=== PATIENT | female | born 1990 | race Caucasian/White ===

== ENCOUNTER → 2019-09-02 10:06 | Outpatient (BNVA) | payer MEDICAID, SELFPAY | PROVIDERS: Family Provider Physician Assistant; PCP Nurse Practitioner Family; Visit Provider Obstetrics & Gynecology | DX: R10.2 Pelvic and perineal pain (principal) | CPT/HCPCS: 76830 ==

== ENCOUNTER → 2019-10-02 16:10 | Outpatient (BNVA) | payer MEDICAID, SELFPAY | PROVIDERS: Family Provider Physician Assistant; PCP Nurse Practitioner Family; Visit Provider Obstetrics & Gynecology | DX: Z12.4 Encounter for screening for malignant neoplasm of cervix (principal); R10.2 Pelvic and perineal pain | CPT/HCPCS: 88175 ==

== ENCOUNTER → 2019-11-15 08:49 | Outpatient (BNVA) | payer MEDICAID, SELFPAY | PROVIDERS: Family Provider Physician Assistant; PCP Nurse Practitioner Family; Visit Provider Obstetrics & Gynecology | DX: R87.610 Atypical squamous cells of undetermined significance on cytologic smear of cervix (ASC-US) (principal); R87.810 Cervical high risk human papillomavirus (HPV) DNA test positive | CPT/HCPCS: 88305 ==

== ENCOUNTER 2020-03-12 14:32 | Outpatient (CLI) | payer MEDICAID, SELFPAY ==
--- NOTE | 2020-03-12 14:42 | MR_ITS ---
WS: [id number] MRI RIGHT KNEE HISTORY: PAIN IN RIGHT KNEE COMPARISON: None available. Anterior cruciate ligament: Intact. Posterior cruciate ligament: Intact. Medial collateral ligament: Intact. Posterior lateral corner structures: Intact. Medial menisci: Intact. Normal signal, size and shape. Lateral meniscus: Intact. Normal signal, size and shape. Extensor mechanism: Distal quadriceps tendon and patellar tendons are intact. Fluid and soft tissue: Very small joint effusion. Small amount of soft tissue edema surrounding the k nee the level of the patella. No Nuñez's cyst. Osseous and articular structures: Patellofemoral compartment: Normal. Medial compartment: Normal. Lateral compartment: Normal. MR/MR knee RT wo con* [id number] IMPRESSION: 1. Small amount of edema and small joint effusion. 2. No meniscal tear.
== END 2020-03-12 14:33 | disposition home or self-care (01) ==
LOC: RADSHAW 14:38
PROVIDERS: PCP Nurse Practitioner Family; Visit Provider Nurse Practitioner
DX: M25.561 Pain in right knee (principal); M62.81 Muscle weakness (generalized); R60.9 Edema, unspecified; R29.898 Other symptoms and signs involving the musculoskeletal system; R60.0 Localized edema; M25.461 Effusion, right knee
CPT/HCPCS: 73721

== ENCOUNTER → 2020-05-20 09:10 | Outpatient (BNVA) | payer MEDICAID, SELFPAY | PROVIDERS: PCP Nurse Practitioner Family; Referring Provider Nurse Practitioner Primary Care; Visit Provider Specialist | DX: M25.561 Pain in right knee (principal) | CPT/HCPCS: 73560; 73565 ==

== ENCOUNTER → 2020-08-17 14:22 | Outpatient (BNVA) | payer MEDICAID, SELFPAY | PROVIDERS: PCP Nurse Practitioner Family; Visit Provider Specialist | DX: M25.561 Pain in right knee | CPT/HCPCS: 73560; 73565 ==

== ENCOUNTER 2020-09-15 13:09 | Outpatient (CLI) | payer MEDICAID, SELFPAY ==
--- NOTE | 2020-09-15 13:00 | IR_ITS ---
WS: [id number] RIGHT KNEE ARTHROGRAM (FLUOROSCOPY) RIGHT knee arthrogram was performed in fluoroscopy prior to MRI evaluation. HISTORY: S89.90XA - Unspecified injury of unspecified lower leg, initial encounter COMPARISON: 08/17/2020 Fluoroscopy time: 1.1 minutes. Procedure, risks and complications were explained to the patient. Complications include but not limit ed to bleeding, infection and contrast reaction. Current medications are reviewed. Skin is cleansed with ChloraPrep. Skin is anesthetized with 1% buffered lidocaine. 22-gauge needle is inserted into the lateral patellofemoral joint space. Approximately 35 cc of gadolinium mixture inje cted without complication. Patient will proceed to MRI evaluation immediately. No complications were encountered. Patient is instructed to watch for post procedure infection or ble eding. Patient is also instructed to contact the radiology department with any concerns. IR/[place] [id number] IMPRESSION: Uncomplicated RIGHT knee joint injection prior to MR arthrogram.
--- NOTE | 2020-09-15 13:15 | MR_ITS ---
WS: [id number] RIGHT knee MR arthrogram. HISTORY: Pain in RIGHT knee. Medial pain after twisting injury. COMPARISON: 03/12/2020. Prearthrogram and post arthrogram imaging performed in multiple planes through the knee. Prearthrogram: Diffuse joint effusion. There is mild soft tissue edema. There is fluid at the fibular head which was not present on prior study and may be a small ganglion or bursitis. No definite Nuñez 's cyst. ACL and PCL appear to be intact. Medial collateral ligaments are normal. No meniscal tear. N o loss of cartilage with marrow edema. Mild lateral subluxation of patella. Resulting in mild narrowi ng of the lateral patellofemoral joint space. Medial patellar retinaculum is intact. There is mild subluxation from the joint space of the medial meniscus. No tear is appreciated. Post arthrogram: No meniscal tears are identified on the post arthrogram imaging. There is increased distention of the fluid collection at the fibular head which is probably a fibular head bursitis. No soft tissue fragm ents within the joint fluid. No marrow edema. Again noted is some mild lateral subluxation of patella . MR/MR knee RT wo/w con [id number] IMPRESSION: 1. Uncomplicated RIGHT knee arthrogram. 2. Mild lateral subluxation of patella resulting in narrowing of the patellofe moral joint space. 3. No marrow edema or fracture. 4. Fluid distended fibular head bursa. 5. No meniscal tears.
[2020-09-15] MEDS: iohexol 240 mg/mL 50 mL Btl INTRA-ARTI (14:35)
[2020-09-15] MEDS: gadobenate dimeglumine 20 mL vial IV (14:41)
== END 2020-09-15 13:10 | disposition home or self-care (01) ==
LOC: RADWPI 13:13
PROVIDERS: PCP Nurse Practitioner Family; Visit Provider Specialist
DX: S83.001A Unspecified subluxation of right patella, initial encounter; X58.XXXA Exposure to other specified factors, initial encounter
CPT/HCPCS: 27369; 73723; 77002; A9577; Q9966

== ENCOUNTER → 2020-10-15 13:50 | Outpatient (BNVA) | payer MEDICAID, SELFPAY | PROVIDERS: PCP Nurse Practitioner Family; Visit Provider Obstetrics & Gynecology | DX: R87.610 Atypical squamous cells of undetermined significance on cytologic smear of cervix (ASC-US) (principal) | CPT/HCPCS: 88175 ==

== ENCOUNTER → 2021-09-24 08:43 | Outpatient (BNVA) | payer MEDICAID, SELFPAY | PROVIDERS: PCP Nurse Practitioner Family; Visit Provider Obstetrics & Gynecology | DX: Z30.2 Encounter for sterilization (principal) | CPT/HCPCS: 87635 ==

== ENCOUNTER 2021-09-29 06:35 | Day surgery (SDC) | payer MEDICAID, SELFPAY ==
[2021-09-27 09:49] VITALS: BMI 42.1
--- NOTE | 2021-09-27 16:10 | P.ANESASSM_ITS ---
Pre-Anesthetic Assessment Height/Weight: Height 1.68 m Weight 118.388 kg Operation Date: 09/29/21 08:30 Proposed Procedures p Laparoscopic Salpingectomy 83441/z30.2(Bilateral) - James Araujo MD Familial anesthetic complications: None Was Beta Kevin taken within 24 hours: N/A Was Clonidine taken within 24 hours: N/A Social Tobacco and No alcohol Exam alert, oriented x 3 and regular rate & rhythm Airway Submandibular: within normal limits Cervical ROM: within normal limits Mallampati: Class II Dentition: chipped Pulmonary Asthma and Chronic Obstructive Pulmonary Disease CV/HEM Hypertension Metabolic Morbid Obesity Anesthetic Plan ASA status: 3 Anesthesia: General Medications/Allergies Home Medications Medication Instructions Recorded Confirmed Last Taken Type duloxetine 30 mg capsule,delayed 30 mg PO DAILY #30 cap 05/18/20 09/27/21 Unknown Rx release cetirizine 10 mg tablet (All Day 10 mg PO DAILY 05/20/20 09/27/21 Unknown History Allergy (cetirizine)) hydrochlorothiazide 25 mg tablet 25 mg PO DAILY 10/15/20 09/27/21 Unknown History gabapentin 300 mg capsule 300 mg PO BID 08/27/21 09/27/21 Unknown History furosemide 20 mg tablet 20 mg PO QAM PRN tab 09/27/21 09/27/21 Unknown History potassium chloride 10 mEq 10 meq PO DAILY 09/27/21 09/27/21 Unknown History capsule,extended release Allergies Allergy/AdvReac Type Severity Reaction Status Date / Time doxycycline Allergy Mild rash Verified 09/27/21 09:47 Latex, Natural Rubber Allergy rash Verified 09/27/21 09:47 Penicillins Allergy throat Verified 09/27/21 09:47 swelling [facility] Anesthesia Medical History (Updated 08/27/21 @ 16:52 by James Araujo MD) Asthma Fibromyalgia Request for sterilization Surgical History (Updated 08/27/21 @ 16:52 by James Araujo MD) H/O dilation and curettage History of appendectomy (05/19/15) laparoscopic. [place] [facility] [place] History of cholecystectomy (~2010) laparoscopy Family History (Updated 08/27/21 @ 13:39 by Nery Oseguera RN) Grandmother Hypertension Paternal Stroke Paternal Grandmother Diabetes Maternal Hypertension Maternal Family/Other Diabetes Maternal aunt Thyroid condition paternal aunt Grandfather Hypertension Paternal Heart disease Paternal Stroke Grandfather Hypertension Maternal Other Cancer Denies family history of Colon cancer Ovarian cancer Clotting disorder Hyperlipidemia Breast cancer Anesthesia complication Bleeding disorder Uterine cancer Social History (Updated 09/27/21 @ 08:22 by Nery Oseguera RN) Smoking and tobacco status: never smoked Alcohol intake: never Substance/Drug Use: never Data Anesthesia Cardiac Studies: No Data to Display
[2021-09-29] VITALS (9 sets, daily range): BP systolic 96–126; BP diastolic 67–98; PULSE 52–104; RESP 14–17; TEMP 36.3–36.6; O2SAT 94–100
[2021-09-29 07:42] LABS: OR HCG Qualitative Urine Negative (Negative)
--- NOTE | 2021-09-29 07:56 | W.PM.OPSUD ---
Surgery/Procedure H&P Update DATE OF PROCEDURE: September 29, 2021 DATE H&P PERFORMED: 09/27/21 H&P UPDATE INFORMATION: I have reviewed H&P completed within last 30 days and No changes to prior documentation PREOP DIAGNOSIS: Desire permanent sterilization PLANNED PROCEDURE: Operation Date: 09/29/21 08:30 Proposed Procedures p Laparoscopic Salpingectomy 52230/z30.2(Bilateral) - James Araujo MD
[2021-09-29 08:09] LABS: Add Urine Microscopic? NO
[2021-09-29 08:10] LABS: Charge for UA Resulting for Rev
[2021-09-29 08:12] LABS: Basophils # 0.1 10^3/uL (0.0-0.1); Basophils % 1.5 %; Eosinophils # 0.1 10^3/uL (0.0-0.8); Eosinophils % 1.1 %; Hematocrit 43.9 % (37.0-47.0); Hemoglobin 14.4 g/dL (11.5-15.3); Lymphocytes # 2.1 10^3/uL (0.8-4.8); Lymphocytes % 28.2 %; Mean Corpuscular HGB Conc 32.8 g/dL (30.0-36.0); Mean Corpuscular Volume 82.2 fl (81-99); Monocytes # 0.5 10^3/uL (0.2-0.9); Monocytes % 7.2 %; Neutrophils # 4.48 10^3/uL (1.8-7.7); Neutrophils % 61.7 %; Nucleated Red Blood Cells % 0 %; Platelet Count 261 10^3/cmm (130-400); Red Blood Count 5.34 10^6/uL (4.1-5.3); Red Cell Distribution Width 13.9 % (12.1-15.1); White Blood Count 7.3 10^3/uL (4.0-10.0)
[2021-09-29] MEDS: sodium chloride 0.9% 1,000 ML 30 ML IV (08:15)
--- NOTE | 2021-09-29 08:16 | P.ANESUD_ITS ---
Pre-Anesthetic Update Pre-Anesthetic Assessment: Date of Surgery/Procedure: 09/29/21 Preop Priscilla gnosis: Desire permanent sterilization Proposed Procedure: Operation Date: 09/29/21 08:30 Proposed Procedures p Laparoscopic Salpingectomy 28156/z30.2(Bilateral) - James Araujo MD Any changes to Pre-Anesthetic Assessment?: No Last Intake: Intake Last Liquid Date 09/28/21 Last Liquid Time 20:30 Last Solid Date 09/28/21 Last Solid Time 19:00 Labs Last 48hrs: Short CBC 09/29/21 Range/Units 07:55 WBC 7.3 (4.0-10.0) 10^3/ uL Hgb 14.4 (11.5-15.3) g/dL Hct 43.9 (37.0-47.0) % MCV 82.2 (81-99) fl Plt Count 261 (130-400) 10^3/c mm Neut % (Auto) 61.7 % Neut # (Auto) 4.48 (1.8-7.7) 10^3/u L Vitals: Temperature 97.5 F L 09/29/21 07:30 Temperature Source Temporal Artery S can 09/29/21 07:30 Pulse Rate 52 L 09/29/21 07:30 Pulse Rhythm 09/29/21 08:10 Pulse Strength 3+ Normal 09/29/21 08:10 Respiratory Rate 16 09/29/21 07:30 Blood Pressure 122/98 09/29/21 07:30 Blood Pressure Jeannie n 106 09/29/21 07:30 Pulse Oximetry 94 09/29/21 07:30 Oxygen Delivery Me thod 09/29/21 08:10 Exam: Pre-Anes Outpt Exam: alert, oriented x 3, clear to auscultation bilaterally and regular rate & rhythm Cardiac Studies: No Data to Display
[2021-09-29] MEDS: vancomycin 1,000 MG in sodium chloride 0.9% 250 ML 250 MG IV (08:20)
[2021-09-29 08:22] LABS: Bilirubin Urine Neg (Negative); Blood Urine Neg (Negative); Glucose Urine UA Norm (Normal); Ketones Urine Negative (Negative); Leukocyte Esterase Urine Negative (Negative); Nitrate Urine Negative (Negative); Protein Urine Neg (Negative); Specific Gravity, Urine 1.015 (1.005-1.030); Urine Appearance Clear (CLEAR); Urine Color Yellow (Yellow); Urobilinogen Urine Norm (Negative); pH Urine 5 (5-7)
[2021-09-29 08:33] LABS: Anion Gap 12.8 (5-19); Blood Urea Nitrogen 9 mg/dL (6-20); Calcium 9.9 mg/dL (8.5-10.5); Carbon Dioxide 25 mmol/L (22-29); Chloride 105 mmol/L (98-107); Creatinine Clr Calc Pharmacy 149.6618; Glomerular Filtration Rate 96.4 mL/min (90-130); Glucose 90 mg/dL (65-115); Osmolality Calculated 286 mOsm/kg (285-295); Potassium 3.8 mmol/L (3.5-5.1); Sodium 139 mmol/L (136-145)
--- NOTE | 2021-09-29 09:19 | PM.OP ---
Operative Report Date of procedure: September 29, 2021 Pre-op diagnosis: Preop Diagnosis Desire permanent sterilization Post-op diagnosis: Same as above Post-op findings: Normal fallopian tubes ovary and uterus Procedure done: Laparoscopic bilateral salpingectomy Specimens removed/disposition: Left and right fallopian tube Pathology: Left and right fallopian tube Surgeon: James Araujo MD Estimated blood loss (mL): 5 IV fluids (mL): 700 Urine output (mL): 25 Complications: None Findings: Normal pelvic and abdominal anatomy Brief History: 31-year-old female desires permanent sterilization Procedure: After informed consent, the patient was taken to the operating room where general anesthesia was administered. She was placed in the dorsal lithotomy position and prepped and draped in sterile fashion. Pre-Procedure Time-Out verifying the correct patient identity, correct procedure verified with consent, correct site and side, correct patient position, availability of correct implants and any special equipment or requirements was performed and acknowledge by the OR team. The patient was examined under anesthesia and found to have a normal uterus with normal adnexa. A weighted speculum was placed in the vagina, and the anterior lip of cervix was grasped with the single toothed tenaculum. A uterine manipulator was advanced into the endocervical canal and uterus. The tenaculum was removed after uterine manipulator was secured. The speculum was removed from the vagina. An intraumbilical incision was made with a scalpel. While tenting up on the abdomen, a Verres needle was admitted into the intra-abdominal cavity. A saline drop test was performed and noted to be within normal limits. Pneumoperitoneum was attained with 4 liters of carbon dioxide. The Verres needle was removed. A 5 mm Opitc view trocar and sleeve were admitted into the abdomen and laparoscopic confirmation of location was achieved. A second incision was made 3 cm above the symphysis pubis, and a 5 mm trocar sleeves were admitted into the abdomen under direct laparoscopic visualization without complication. A survey revealed normal abdominal anatomy with the exception of string adhesion to the right lower anterior abdominal wall. A 5 mm blunt probe was advanced through the second trocar sleeve, and light manipulation of ovaries and uterus to assess the posterior aspects was performed. The pelvic survey shows normal uterus, left and right adnexa. The left ovary was noted with a follicular cyst. The string adhesion was fulgurated and transected with good hemostasis with the Voyant. The patient was placed into Trendelenburg position. The fallopian tubes were inspected bilaterally and the fimbriated ends of the fallopian tubes were visualized bilaterally. Attention was then directed to the right side. The fallopian tube and mesosalpinx were grasped and the underlying mesosalpinx was cauterized and cut using the Voyant device. Serial cauterization and cutting was used to separate the fallopian tube from the underlying mesosalpinx until it could be amputated cutting it approximated 2 cm from the cornua. Attention was then turned to the contralateral fallopian tube, which was removed in similar fashion. Both specimens were removed through the trocar and sent to pathology. The instruments were removed. The suprapubic trocar port was removed under direct visualization insuring good hemostasis. The carbon dioxide was allowed to escape from the abdomen. The intraumbilical trocar sleeve was withdrawn under visualization with laparoscope in the sleeve to insure hemostasis. The skin incisions were closed with 3-O Monocryl subcuticular stich and Dermabond. The instruments were removed from the vagina, and excellent hemostasis was noted. The patient tolerated the procedure well, and sponge, lap and needle count were correct times two. The patient was taken to the recovery room in good condition.
[2021-09-29] MEDS: HYDROcodone-acetaminophen 5-325 mg Tablet 1 TAB PO (10:50)
--- NOTE | 2021-09-29 16:50 | ANE.PACU2 ---
Inpatient post-anesthesia follow up: Airway intact: Yes Vital signs: Temperature 97.9 F Pulse Rate 53 Respiratory Rate 14 Blood Pressure 112/74 Pulse Oximetry 99 Oxygen Delivery Me thod Room Air Oxygen Flow Rate 3 Fraction of Inspir ed Oxygen Hydration adequate: Yes Nausea and vomiting: No Pain level: 2 Mental status: Baseline
== END 2021-09-29 11:40 | disposition home or self-care (01) ==
PROVIDERS: PCP Nurse Practitioner Family; Visit Provider Obstetrics & Gynecology
PROC: (CPT 58661; principal; 2021-09-29 08:30)
DX: Z30.2 Encounter for sterilization (principal); J44.9 Chronic obstructive pulmonary disease, unspecified; I10 Essential (primary) hypertension; E66.01 Morbid (severe) obesity due to excess calories; Z68.41 Body mass index [BMI] 40.0-44.9, adult; M79.7 Fibromyalgia
CPT/HCPCS: 58661; 36415; 80048; 81003; 81025; 84703; 85025; 86850; 86900; 88302; J0330; J1100; J1200; J2250; J2405; J2704; J2710; J3010; J3370; J3490; J7030; J7050

== ENCOUNTER → 2022-01-14 13:26 | Outpatient (BNVA) | payer MEDICAID, SELFPAY | PROVIDERS: PCP Nurse Practitioner Family; Visit Provider Family Medicine | DX: M25.572 Pain in left ankle and joints of left foot (principal) | CPT/HCPCS: 73610 ==